=== PATIENT | female | born 1955 | race Caucasian/White ===

== ENCOUNTER → 2016-08-18 | Outpatient (CLI) | payer OTHER | LOC: FIMAGING 11:02 | DX: Z12.31 Encounter for screening mammogram for malignant neoplasm of breast (principal); Z85.3 Personal history of malignant neoplasm of breast; Z80.3 Family history of malignant neoplasm of breast | CPT/HCPCS: G0202 ==

== ENCOUNTER → 2016-08-21 | Outpatient (CLI) | payer OTHER | LOC: FIMAGING 10:23 | PROVIDERS: ATTEND Surgery | DX: R92.0 Mammographic microcalcification found on diagnostic imaging of breast (principal) | CPT/HCPCS: G0204 ==

== ENCOUNTER → 2016-08-27 | Day surgery (SDC) | payer OTHER ==
[~2016-08-27] MED LIST: THROMBIN (BOVINE) 5,000 UNIT VIAL TP ONE
== END | disposition home or self-care (01) ==
LOC: FIMAGING 11:44
PROVIDERS: ATTEND Surgery
PROC: 0HBU3ZX Excision of Left Breast, Percutaneous Approach, Diagnostic (ICD-10-PCS; principal; 2016-08-27)
DX: N60.92 Unspecified benign mammary dysplasia of left breast (principal); Z80.3 Family history of malignant neoplasm of breast
CPT/HCPCS: G0206

== ENCOUNTER → 2017-04-18 | Outpatient (CLI) | payer OTHER | LOC: FIMAGING 15:03 | PROVIDERS: ATTEND Surgery | DX: R92.2 Inconclusive mammogram (principal); Z80.3 Family history of malignant neoplasm of breast | CPT/HCPCS: G0204 ==

== ENCOUNTER 2017-07-06 15:34 | Observation (INO) | payer OTHER ==
[2017-07-06] MEDS ORDERED: ASPIRIN 81 MG CHEWABLE TAB ONE (16:29)
--- NOTE | 2017-07-06 16:30 | CPEKG ---
Heart Rate: 62 RR Interval: 968 P-R Interval: 184 QRSD Interval: 74 QT Interval: 432 QTC Interval: 439 P [employer]: 74 QRS [employer]: 23 T Wave [employer]: 35 EKG Severity - NORMAL ECG - EKG Impression: SINUS RHYTHM Electronically Signed By: Leslee Jacob 06-Jul-2017 21:08:41
[2017-07-06] MEDS ORDERED: ASPIRIN 325 MG TAB PO ONE (16:31)
--- NOTE | 2017-07-06 16:33 | EDPHY ---
HPI/HX/ROS/PE/MDM Narrative: CHIEF COMPLAINT: Chest pain HISTORY OF PRESENT ILLNESS: The patient is a 61 y/o female complaining chest pain that radiated into the dorsal aspect of her left arm and neck this afternoon while shopping at 12:45, 4 hours ago. The pain was most noticeable for 5 minutes. At 13:00, she went to an urgent care who noticed that the patient had sinus bradycardia. During this time she still had pressure and tightness in her chest. By 14:00, all of the pain and tightness was gone. The urgent care advised that the patient present to the ED due to her symptoms. She is currently feeling anxious. On , she was at a spin class and felt more tired than usual as this was her second spin class of the week. Denies preforming abnormal chest exercises or lifting heavy objects recently. No familial history of CAD, PE, or diabetes. Father of stroke at 91 due to a DVT. Denies taking estrogen or progesterone. No fever, chills, shortness of breath, diaphoresis, palpitations, vomiting, diarrhea, urinary complaints, headache, lightheadedness. REVIEW OF SYSTEMS: Aside from elements discussed in the HPI, a comprehensive 10-point review of systems was reviewed and is negative. PAST MEDICAL HISTORY: Breast cancer with lumpectomy (2010) SOCIAL HISTORY: Lives in [place], works at [employer], [employer] VITAL SIGNS: Reviewed by me GENERAL: Well-developed, well-nourished, resting comfortably in no respiratory distress. HEENT: Atraumatic. Eyes: No icterus, no injection. Mouth: moist mucous membranes. No erythema or lesions. Neck: supple with no adenopathy. LUNGS: Clear to auscultation bilaterally, no wheezes, rhonchi or rales. CARDIAC: Regular rate and rhythm, no rubs, murmurs or gallops. ABDOMEN: Soft, nontender, nondistended, bowel sounds normal. BACK: No CVA tenderness. EXTREMITIES: No trauma. No edema. Range of motion is normal throughout. NEURO: Alert and oriented, grossly nonfocal. SKIN: Warm and dry, no rash. PSYCHIATRIC: Normal mentation, no agitation. Portions of this note were transcribed by a certified medical aide. I personally performed a history, physical exam, medical decision making, and confirmed accuracy of information the transcribed note. ED Course: The patient is a 61 y/o female presenting with chest pain that radiated into the dorsal aspect of her left arm and neck this afternoon while shopping at 12: 45, 4 hours ago. The pain went away by 14:00, 3 hours ago. She has a normal exam. Labs, chest x-ray, and EKG ordered. 324mg PO Aspirin administered. 1627: 12-LEAD EKG: Please see the full report in [facility]. My interpretation: Normal sinus rhythm with a rate of 62 1818: Reassessed patient and discussed normal imaging and laboratory findings. She will need to be admitted for observation; patient is comfortable with this plan. 1845: Consulted with hospitalist service, Dr. Castro accepts admission of this patient. - Data Points Imaging Results: Imaging Impressions Chest X-Ray 07/06/17 16:55 Impression: No acute cardiopulmonary process radiographically. Right-sided axillary lymph node dissection since 2010. Imaging: I viewed and interpreted images myself Laboratory Results: Laboratory Results 07/06/17 16:25 07/06/17 16:25 07/06/17 07/06/17 07/06/17 16:25 16:25 16:25 WBC 4.74 10^3/uL 10^3/uL (3.80-9.50) RBC 4.17 10^6/uL L 10^6/uL (4.18-5.33) Hgb 13.7 g/dL g/dL (12.6-16.3) Hct 38.7 % % (38.0-47.0) MCV 92.8 fL fL (81.5-99.8) MCH 32.9 pg pg (27.9-34.1) MCHC 35.4 g/dL g/dL (32.4-36.7) RDW 11.5 % % (11.5-15.2) Plt Count 232 10^3/uL 10^3/uL (150-400) MPV 10.2 fL fL (8.7-11.7) Neut % (Auto) 58.5 % % (39.3-74.2) Lymph % (Auto) 30.6 % % (15.0-45.0) Carver % (Auto) 8.2 % % (4.5-13.0) Eos % (Auto) 1.7 % % (0.6-7.6) Baso % (Auto) 0.6 % % (0.3-1.7) Nucleat RBC Rel Count 0.0 % % (0.0-0.2) Absolute Neuts (auto) 2.77 10^3/uL 10^3/uL (1.70-6.50) Absolute Lymphs (auto) 1.45 10^3/uL 10^3/uL (1.00-3.00) Absolute Monos (auto) 0.39 10^3/uL 10^3/uL (0.30-0.80) Absolute Eos (auto) 0.08 10^3/uL 10^3/uL (0.03-0.40) Absolute Basos (auto) 0.03 10^3/uL 10^3/uL (0.02-0.10) Absolute Nucleated RBC 0.00 10^3/uL 10^3/uL (0-0.01) Immature Gran % 0.4 % % (0.0-1.1) Immature Gran # 0.02 10^3/uL 10^3/uL (0.00-0.10) D-Dimer < 0.27 ug/mLFEU ug/mLFEU (0.00-0.50) Sodium 143 mEq/L mEq/L (135-145) Potassium 3.9 mEq/L mEq/L (3.5-5.2) Chloride 107 mEq/L mEq/L (97-110) Carbon Dioxide 27 mEq/l mEq/l (22-31) Anion Gap 9 mEq/L mEq/L (8-16) BUN 16 mg/dL mg/dL (7-23) Creatinine 0.6 mg/dL mg/dL (0.6-1.0) Estimated GFR > 60 Glucose 96 mg/dL mg/dL (70-100) Calcium 10.2 mg/dL mg/dL (8.5-10.4) Troponin I < 0.012 ng/mL ng/mL (0.000-0.034) Medications Given: Discontinued Medications Aspirin (Aspirin) 325 mg PO EDNOW ONE Stop: 07/06/17 16:32 Last Admin: 18 16:32 Dose: 325 mg Sodium Chloride (Ns) 500 mls @ 1,000 mls/hr IV EDNOW ONE PRN Reason: Protocol Stop: 07/06/17 17:24 Last Admin: 07/06/17 18:42 Dose: Not Given General Time Seen by Provider: 07/06/17 16:32 Initial Vital Signs: Initial Vital Signs Temperature (C) 36.8 C 07/06/17 15:47 Heart Rate 71 07/06/17 15:47 Respiratory Rate 18 07/06/17 15:47 Blood Pressure 132/79 H 07/06/17 15:47 O2 Sat (%) 97 07/06/17 15:47 O2 Delivery Mode Room Air Allergies/Adverse Reactions: No Known Allergies Allergy (Verified 07/06/17 15:47) Home Medications: Medication Instructions Recorded NK [No Known Home Meds] 07/06/17 Departure - Departure Disposition: [facility] Inpatient Acute Clinical Impression: Chest pain Qualifiers: Chest pain type: other chest pain Qualified Code(s): R07.89 - Other chest pain Condition: Fair Report Scribed for: Jena Benites Report Scribed by: Monserrat Ruiz Date of Report: 07/06/17 Time of Report: 16:33
[2017-07-06] MEDS ORDERED: NS 500 ML IV ONE (16:55)
[2017-07-06 16:59] LABS: PLATELET COUNT 232 10^3/uL (150-400)
[2017-07-06] MEDS ORDERED: ONDANSETRON 4 MG/2 ML VIAL IVP PRN (19:05)
[2017-07-06] MEDS ORDERED: TEMAZEPAM 15 MG CAP PO PRN (19:05)
[2017-07-06] MEDS ORDERED: ACETAMINOPHEN 325 MG TAB PO PRN (19:05)
[2017-07-06] MEDS ORDERED: oxyCODONE IR 5 MG TAB PO PRN (19:05)
[2017-07-06] MEDS ORDERED: ONDANSETRON DISINTEGRATING 4 MG TAB PO PRN (19:05)
--- NOTE | 2017-07-06 19:31 | GHP ---
[f rep st] HISTORY AND PHYSICAL DATE OF ADMISSION: 07/06/2017 CHIEF COMPLAINT: Chest pain. HISTORY OF PRESENT ILLNESS: A 61-year-old female with no significant cardiac history, presents with chest pain. She was shopping at the time. She notes that it was on the left side of her chest, radi ated to her left arm and left side of her neck. Described as a deep ache. She thinks that her left ear may have actually turned red at the same time. It was not associated with any lightheadedness, s hortness of breath, no nausea, vomiting, or diaphoresis. She notes that maybe earlier this week she had more difficulty exercising in a spin class than normal. Otherwise, she exercises quite a bit and is healthy. She has never had any heart problems. Never had a stress test. Has never seen a cardi ologist. PAST MEDICAL/SURGICAL HISTORY: 1. Breast cancer, status post lumpectomy and lymph node dissection 7 years ago. Told that she was c ancer free. 2. Ankle surgery for a fracture about 40 years ago. MEDICATIONS: Please see medication reconciliation. ALLERGIES: No known drug allergies. FAMILY HISTORY: No cardiac disease. Her father had a stroke at 91. SOCIAL HISTORY: She drinks about one alcoholic drink a night. She does not smoke. REVIEW OF SYSTEMS: A 10-point review of systems is conducted and is negative except per HPI. PHYSICAL EXAM: VITAL SIGNS: Blood pressure 132/71, heart rate 57, respiration rate 18, saturating 9 6% on room air, temperature 36.9. GENERAL: Ms. Morris is a pleasant female who is resting comforta edwige. No acute distress. HEENT: Shows her to be normocephalic, atraumatic. CARDIOVASCULAR: Exam s hows her to be bradycardic. She has no murmurs, rubs or gallops. No elevated JVD. No lower extremi ty edema. PULMONARY: Lungs clear to auscultation bilaterally. ABDOMEN: Soft, nontender, nondisten ded. SKIN: Shows no rash. : No Keita. NEUROLOGIC: Shows her to be alert and oriented x3. She is moving all extremities. PSYCHIATRIC: Exam shows normal mood and affect. LABORATORY DATA: CBC is normal. D-dimer is undetectable. Troponin is negative. Creatinine 0.6. DATA: 1. Chest x-ray, which I personally viewed and interpreted, shows normal heart size. No acute infilt rates. I discussed this with Dr. Benites. Will admit to the PCU. 2. I personally viewed and interpreted her EKG. This shows sinus rhythm. Normal EKG. IMPRESSION AND PLAN: Chest pain: She is somewhat low risk overall. We will trend her troponins. R epeat an EKG in the morning. Monitor her on telemetry. Check a treadmill EKG tomorrow. If this is negative, she can be discharged. This is a high-risk diagnosis. /[id number]/MODL
[2017-07-07 07:16] VITALS: PULSE 68
[2017-07-07 11:53] VITALS: BP 111/69; RESP 20; TEMP 98.2; O2SAT 96
--- NOTE | 2017-07-07 13:52 | PDDCSUM ---
Discharge Summary Discharge Summary: DISCHARGE SUMMARY FOLLOW-UP ITEMS: Reassess symptoms as an outpatient DATE OF ADMISSION: 07/06/2017 DATE OF DISCHARGE: 07/07/2017 DISCHARGE DIAGNOSES: 1. Acute chest pain 2. Suspected acute anxiety CONSULTATIONS: None PROCEDURES / IMAGING: Exercise stress test demonstrating no inducible ischemia comma chest x-ray normal CHIEF COMPLAINT: Acute chest pain SUBJECTIVE: Patient is feeling well at time discharge, symptoms resolved PHYSICAL EXAM ON DISCHARGE: Systolic blood pressure 110-140, heart rate 60, afebrile overnight, satting on room air, alert awake oriented x3, no apparent distress, lungs are clear to auscultation bilaterally, heart rhythm is regular LABS ON DISCHARGE: Troponin negative x3, D-dimer negative, normal white blood cell count HOSPITAL COURSE BY PROBLEM: The patient presented with acute chest pain radiating into her left arm and left neck, which is most likely atypical and secondary to acute anxiety in the setting of stressful situation. She was ruled out for acute coronary syndrome with negative troponin x3, no ischemic changes on EKG, and ruled out for obstructive coronary disease with a normal exercise stress test. She was ruled out for pulmonary embolism with a negative D-dimer and ruled out for pulmonary infection with a negative chest x-ray. Her physical exam after resolution of symptoms demonstrated no abnormalities of the neck, ear, shoulder, and she had full range of motion without any inducible pain. She endorses that her symptoms began while she was acutely stressed over recent remodel of her house. I believe this is the most likely provoking factor. Patient has never experienced these symptoms in the past, and I do not feel like they are related to reflux. That being said, recommend the patient follow up with primary care provider and reassess whether she experiences any recurrence. DISCHARGE MEDICATIONS: Please see official discharge medication reconciliation sheet in chart , no medications. DISCHARGE INSTRUCTIONS: Please follow up with primary care provider within 1-2 weeks.
== END 2017-07-07 14:13 | disposition home or self-care (01) ==
LOC: F2W 21:24
PROVIDERS: ADMIT Student in an Organized Health Care Education/Training Program; ATTEND Student in an Organized Health Care Education/Training Program
DX: R07.89 Other chest pain (principal); F41.9 Anxiety disorder, unspecified; Z82.49 Family history of ischemic heart disease and other diseases of the circulatory system; Z85.3 Personal history of malignant neoplasm of breast
CPT/HCPCS: G0378

== ENCOUNTER → 2018-05-15 | Outpatient (CLI) | payer OTHER | LOC: FIMAGING 09:30 | PROVIDERS: ATTEND Surgery | DX: Z12.31 Encounter for screening mammogram for malignant neoplasm of breast (principal); Z85.3 Personal history of malignant neoplasm of breast ==